=== PATIENT | female | born 2000 | race African-American/Black ===

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

== ENCOUNTER 2022-03-11 08:44 | Emergency (ER) | payer OTHER | END 2022-03-11 09:40 | disposition home or self-care (01) | LOC: ERS 08:44 | DX: H10.9 Unspecified conjunctivitis (principal); D50.9 Iron deficiency anemia, unspecified; F17.290 Nicotine dependence, other tobacco product, uncomplicated | CPT/HCPCS: 99282 ==

== ENCOUNTER 2022-07-17 20:22 | Inpatient (IN) | payer OTHER ==
[2022-07-17 22:54] VITALS: BMI 36.2
[2022-07-17] MEDS ORDERED: Ketorolac Tromethamine 30 MG/ML VIAL IVP SCH (23:45)
[2022-07-18] MEDS ORDERED: Morphine 4 MG/ML VIAL SLOW IVP PRN (00:12)
[2022-07-18] MEDS ORDERED: Ondansetron PF 4 MG/2 ML Vial IVP PRN ×2 (00:20→09:37)
[2022-07-18] MEDS ORDERED: Acetaminophen 325 MG TAB PO PRN (00:20)
[2022-07-18] MEDS ORDERED: Acetaminophen 650 MG Suppository PR PRN (00:20)
[2022-07-18] MEDS ORDERED: Ondansetron ODT 4 MG TAB PO PRN (00:20)
[2022-07-18 03:55] LABS: SARS-CoV-2 NAA Rapid Test Not Detected (NotDetected)
[2022-07-18 05:21] LABS: Iron 16 ug/dL (50-170); Iron Binding Capacity, Total 215 mcg/dL (265-497)
[2022-07-18 05:22] LABS: Anion Gap 11 mmol/L (10-20); BUN (Urea Nitrogen) 8 mg/dL (7.0-18.7); Calc. Creatinine Clearance 177 mL/min (70-130); Calcium 9.1 mg/dL (7.8-10.44); Carbon Dioxide 26 mmol/L (22-29); Chloride 105 mmol/L (98-107); Estimated GFR 110; Glucose 79 mg/dL (70-105); Iron 14 ug/dL (50-170); Iron Binding Capacity, Total 213 mcg/dL (265-497); Potassium 4.3 mmol/L (3.5-5.1); Sodium 138 mmol/L (136-145)
[2022-07-18 06:58] LABS: #Eosinphils 0.2 thou/uL (0.0-0.7); #Lymphocytes 0.6 thou/uL (1.20-3.40); #Monocytes 0.7 thou/uL (0.11-0.59); #Neutrophils 5.8 thou/uL (1.40-6.50); %Basophils 0.3 % (0.0-1.0); %Eosinophils 3.1 % (0.0-10.0); %Lymphocytes 8.6 % (28.0-48.0); %Monocytes 9.6 % (0.0-4.0); %Neutrophils 78.4 % (31.0-61.0); Hemoglobin 7.9 g/dL (12.0-16.0); Hypochromia SLIGHT = 6-15 cells (100X) (0-5/hpf); MDiff Complete? YES; Mean Corpuscular HGB CONC 27.9 g/dL (32.0-36.0); Mean Corpuscular Hemoglobin 18.8 pg (25.0-35.0); Mean Corpuscular Volume 67.3 fL (78.0-98.0); Mean Platelet Volume 8.9 fL (7.4-10.4); Platelet Count 486 thou/uL (130-400); RBC Distribution Width 16.2 % (11.5-14.5); Red Blood Cell (RBC) Count 4.19 mill/uL (4.00-5.20); White Blood Cell (WBC) Count 7.4 thou/uL (4.8-10.8)
[2022-07-18] MEDS ORDERED: fentaNYL Citrate/PF 100 MCG/2 ML SYRINGE ONE (09:32)
[2022-07-18] MEDS ORDERED: Bupivacaine/Epinephrine 0.25% 30 ML VIAL ONE (09:33)
[2022-07-18] MEDS ORDERED: Prochlorperazine Edisylate 10 MG in Sodium Chloride 0.9% 50 ML IVPB PRN (09:37)
[2022-07-18] MEDS ORDERED: Sodium Chloride 0.9% 100 ML ONE (10:16)
[2022-07-18] MEDS ORDERED: CEFAZOLIN 2 GM VIAL ONE (10:16)
[2022-07-18] MEDS ORDERED: CEFAZOLIN 2 GM in Sodium Chloride 0.9% 100 ML IVPB SCH (10:30)
[2022-07-18] MEDS ORDERED: Dexamethasone 20 MG/5 ML VIAL ONE (10:35)
[2022-07-18] MEDS ORDERED: Ondansetron PF 4 MG/2 ML Vial ONE (10:35)
[2022-07-18] MEDS ORDERED: Rocuronium Bromide 10 MG/ML (10ML VIAL) ONE (10:35)
[2022-07-18] MEDS ORDERED: Lidocaine 1% MPF 2 ML VIAL ONE (10:35)
[2022-07-18] MEDS ORDERED: Glycopyrrolate 0.2 MG/ML 5 ML SYRINGE ONE (10:35)
[2022-07-18] MEDS ORDERED: NEOSTIGMINE 3 MG/3 ML SYR 3 MG/3 ML SYRINGE ONE (10:35)
[2022-07-18] MEDS ORDERED: PROPOFOL 200 MG/20 ML VIAL ONE (10:35)
[2022-07-18] MEDS ORDERED: Fentanyl 100 MCG/2 ML VIAL ONE (11:47)
[2022-07-18] MEDS ORDERED: Promethazine HCl 25 MG/ML VIAL IVPB PRN (11:50)
[2022-07-18] MEDS ORDERED: Ondansetron HCl/PF 4 MG/2 ML Vial IVP PRN (11:50)
[2022-07-18] MEDS ORDERED: Promethazine HCl 25 MG/ML VIAL IM PRN (11:50)
[2022-07-18] MEDS: Lactated Ringer's 1,000 ML IV SCH (12:52)
[2022-07-18] MEDS: Iron, Sodium Ferric Gluconate 250 MG in Sodium Chloride 0.9% 250 ML 250 ML IVPB SCH (14:35)
[2022-07-18] MEDS: Heparin 5,000 UNITS/ML VIAL SC SCH (20:44)
[2022-07-19] MEDS: Lactated Ringer's 1,000 ML IV SCH ×2 (00:05→14:33)
[2022-07-19] MEDS ORDERED: traMADol HCl 50 MG TAB PO PRN ×2 (02:52)
[2022-07-19] MEDS ORDERED: Ferrous Gluconate 324 MG TAB PO SCH (08:00)
[2022-07-19 08:15] VITALS: BP 123/59; TEMP 97.2
[2022-07-19] MEDS ORDERED: Iron Sucrose Complex 200 MG in Sodium Chloride 0.9% 100 ML IVPB SCH (09:00)
[2022-07-19 09:17] LABS: Anion Gap 12 mmol/L (10-20); BUN (Urea Nitrogen) 7 mg/dL (7.0-18.7); Calc. Creatinine Clearance 197 mL/min (70-130); Calcium 9.4 mg/dL (7.8-10.44); Carbon Dioxide 25 mmol/L (22-29); Chloride 107 mmol/L (98-107); Estimated GFR 125; Glucose 109 mg/dL (70-105); Sodium 140 mmol/L (136-145)
[2022-07-19] MEDS: Heparin 5,000 UNITS/ML VIAL SC SCH (09:34)
[2022-07-19 09:56] LABS: Band 3 % (5-11); Hemoglobin 8.5 g/dL (12.0-16.0); Hypochromia SLIGHT = 6-15 cells (100X) (0-5/hpf); Lymphocytes 3 % (28-48); MDiff Complete? YES; Mean Corpuscular HGB CONC 28.6 g/dL (32.0-36.0); Mean Corpuscular Hemoglobin 18.9 pg (25.0-35.0); Mean Corpuscular Volume 66.2 fL (78.0-98.0); Mean Platelet Volume 8.3 fL (7.4-10.4); Microcytosis SLIGHT = 6-15 cells (100X) (0-5/hpf); Monocytes 2 % (0-4); Neutrophil 92 % (31-61); Platelet Count 558 thou/uL (130-400); Platelet Morphology Comment Appears Increased; RBC Distribution Width 16.1 % (11.5-14.5); Red Blood Cell (RBC) Count 4.48 mill/uL (4.00-5.20); White Blood Cell (WBC) Count 12.5 thou/uL (4.8-10.8)
[2022-07-19] MEDS: Iron, Sodium Ferric Gluconate 250 MG in Sodium Chloride 0.9% 250 ML 250 ML IVPB SCH (14:33)
== END 2022-07-19 16:30 | disposition home or self-care (01) | DRG 821 ==
LOC: 2NO 22:35
PROVIDERS: ADMIT Hospitalist; ATTEND Hospitalist
PROC: 0WBC0ZX Excision of Mediastinum, Open Approach, Diagnostic (ICD-10-PCS; principal; 2022-07-18)
DX: C81.92 Hodgkin lymphoma, unspecified, intrathoracic lymph nodes (principal); J90 Pleural effusion, not elsewhere classified; Z20.822 Contact with and (suspected) exposure to COVID-19; J45.909 Unspecified asthma, uncomplicated; D50.9 Iron deficiency anemia, unspecified; Z90.721 Acquired absence of ovaries, unilateral; Z79.899 Other long term (current) drug therapy
CPT/HCPCS: 36415; 80048; 82728; 83540; 83550; 83615; 84550; 85025; 86850; 86900; 86901; 88184; 88185; 88305; 88307; 88331; 88341; 88342; 88365; 93306; J0690; J1100; J1644; J1885; J2405; J2704; J2916; J3010; J3490; J7050; J7120; U0002

== ENCOUNTER 2022-07-26 09:30 | Outpatient (CLI) | payer OTHER | END 2022-07-26 09:31 | disposition home or self-care (01) | LOC: PET 09:30 | PROVIDERS: ATTEND Internal Medicine Hematology & Oncology | DX: C81.40 Lymphocyte-rich Hodgkin lymphoma, unspecified site (principal); C85.98 Non-Hodgkin lymphoma, unspecified, lymph nodes of multiple sites | CPT/HCPCS: 78815; A9552 ==

== ENCOUNTER → 2022-09-24 | Outpatient (CLI) | payer OTHER | LOC: PET 09:30 | PROVIDERS: ATTEND Internal Medicine Hematology & Oncology | DX: C81.40 Lymphocyte-rich Hodgkin lymphoma, unspecified site (principal) | CPT/HCPCS: 78815; A9552 ==

== ENCOUNTER 2022-11-04 11:41 | Outpatient (CLI) | payer OTHER | END 2022-11-04 11:42 | disposition home or self-care (01) | LOC: ULT 11:41 | PROVIDERS: ATTEND Internal Medicine | DX: C81.40 Lymphocyte-rich Hodgkin lymphoma, unspecified site (principal); D50.8 Other iron deficiency anemias; R60.0 Localized edema | CPT/HCPCS: 85379 ==

== ENCOUNTER 2022-11-08 22:17 | Inpatient (IN) | payer OTHER ==
[2022-11-08] MEDS ORDERED: Ondansetron ODT 4 MG TAB PO PRN (23:43)
[2022-11-08] MEDS ORDERED: Senokot S 8.6-50 MG TAB PO PRN (23:43)
[2022-11-09 00:07] VITALS: BMI 42.5
[2022-11-09 00:07] LABS: Hemoglobin 11.8 g/dL (12.0-16.0); Platelet Count 313 10x3/uL (130-400)
[2022-11-09] MEDS: Heparin 10,000 UNITS/ 10 ML VIAL SLOW IVP SCH ×2 (01:07→20:12)
[2022-11-09] MEDS: Heparin 25,000 units/D5W 500 ML IVPB SCH ×2 (01:08→18:37)
[2022-11-09] MEDS: Acetaminophen 325 MG TAB PO PRN ×2 (03:53→11:57)
[2022-11-09 04:37] LABS: #Eosinphils 0.2 thou/uL (0.0-0.7); #Lymphocytes 1.2 thou/uL (1.20-3.40); #Monocytes 0.5 thou/uL (0.11-0.59); #Neutrophils 4.9 thou/uL (1.40-6.50); %Basophils 0.2 % (0.0-1.0); %Eosinophils 2.8 % (0.0-10.0); %Lymphocytes 17.1 % (28.0-48.0); %Monocytes 7.2 % (0.0-4.0); %Neutrophils 72.8 % (31.0-61.0); Hemoglobin 11.9 g/dL (12.0-16.0); Mean Corpuscular HGB CONC 32.6 g/dL (32.0-36.0); Mean Corpuscular Hemoglobin 26.9 pg (25.0-35.0); Mean Corpuscular Volume 82.5 fl (78.0-98.0); Mean Platelet Volume 8.4 fL (7.4-10.4); Platelet Count 334 10x3/uL (130-400); RBC Distribution Width 17.6 % (11.5-14.5); Red Blood Cell (RBC) Count 4.41 mill/uL (4.00-5.20); White Blood Cell (WBC) Count 6.7 10x3/uL (4.8-10.8)
[2022-11-09 04:48] LABS: Anion Gap 13 mmol/L (10-20); BUN (Urea Nitrogen) 12 mg/dL (7.0-18.7); Calc. Creatinine Clearance 232 mL/min (70-130); Calcium 8.9 mg/dL (7.8-10.44); Carbon Dioxide 25 mmol/L (22-29); Chloride 104 mmol/L (98-107); Estimated GFR 125; Glucose 119 mg/dL (70-105); Potassium 3.9 mmol/L (3.5-5.1); Sodium 138 mmol/L (136-145)
[2022-11-09] MEDS ORDERED: HYDROcodone/Acetaminophen 5/325 mg Tablet PO SCH (05:00)
[2022-11-09 06:41] LABS: PTT Greater than 250.0 sec (22.9-36.1)
[2022-11-09] MEDS: Famotidine 20 MG TAB PO SCH ×2 (09:02→20:12)
[2022-11-09 09:31] LABS: Troponin I 0.012 ng/mL (< 0.028)
[2022-11-09] MEDS ORDERED: Ipratropium/Albuterol 3 ML NEB NEB PRN (14:01)
[2022-11-10] MEDS: Acetaminophen 325 MG TAB PO PRN (01:14)
[2022-11-10 05:18] LABS: Troponin I Less than 0.010 ng/mL (< 0.028)
[2022-11-10] MEDS: Heparin 25,000 units/D5W 500 ML IVPB SCH (06:58)
[2022-11-10] MEDS: Famotidine 20 MG TAB PO SCH (10:27)
[2022-11-10 13:37] VITALS: BP 109/52; TEMP 97.2
== END 2022-11-10 12:36 | disposition home or self-care (01) | DRG 176 ==
LOC: INTOOBSV 22:49 → 2NO 22:49 → OBSVTOIN 11-10 09:43
PROVIDERS: ADMIT Hospitalist; ATTEND Hospitalist
DX: I26.99 Other pulmonary embolism without acute cor pulmonale (principal); C85.90 Non-Hodgkin lymphoma, unspecified, unspecified site; Z20.822 Contact with and (suspected) exposure to COVID-19; Z79.899 Other long term (current) drug therapy; Z79.01 Long term (current) use of anticoagulants
CPT/HCPCS: 36415; 80048; 84484; 85025; 85730; 93005; 93010; 94640; J1644; J7620; U0003; U0005

== ENCOUNTER 2023-01-08 12:16 | Outpatient (CLI) | payer OTHER | END 2023-01-08 12:17 | disposition home or self-care (01) | LOC: ULT 12:16 | PROVIDERS: ATTEND Internal Medicine | DX: Z51.11 Encounter for antineoplastic chemotherapy (principal); C81.40 Lymphocyte-rich Hodgkin lymphoma, unspecified site; D50.8 Other iron deficiency anemias; I08.1 Rheumatic disorders of both mitral and tricuspid valves | CPT/HCPCS: 93306 ==

== ENCOUNTER → 2023-01-16 | Outpatient (CLI) | payer OTHER | LOC: PET 11:00 | PROVIDERS: ATTEND Internal Medicine | DX: C81.10 Nodular sclerosis Hodgkin lymphoma, unspecified site (principal) | CPT/HCPCS: 78815; A9552 ==

== ENCOUNTER 2023-02-10 09:21 | Day surgery (SDC) | payer OTHER ==
[2023-02-10 09:40] LABS: INR-International Normal Ratio 1.1; Prothrombin Time 14.6 sec (12.0-14.7)
[2023-02-10 10:46] VITALS: BP 156/82; TEMP 98.6; BMI 43.2
== END 2023-02-10 14:00 | disposition home or self-care (01) ==
LOC: CT 09:21
PROVIDERS: ATTEND Internal Medicine
PROC: 0WBC3ZX Excision of Mediastinum, Percutaneous Approach, Diagnostic (ICD-10-PCS; principal; 2023-02-10)
DX: C81.40 Lymphocyte-rich Hodgkin lymphoma, unspecified site (principal); R22.2 Localized swelling, mass and lump, trunk; D72.819 Decreased white blood cell count, unspecified; D50.8 Other iron deficiency anemias; Z21 Asymptomatic human immunodeficiency virus [HIV] infection status; Z79.01 Long term (current) use of anticoagulants
CPT/HCPCS: 20225; 36415; 77002; 85610; 85730; 88184; 88307; 88333; 88341; 88342

== ENCOUNTER 2023-02-28 11:45 | Outpatient (CLI) | payer OTHER ==
[~2023-02-28 11:45] MED LIST: Iopamidol 370 76% 100 ML VIAL ONE
== END 2023-02-28 11:46 | disposition home or self-care (01) ==
LOC: CT 11:45
PROVIDERS: ATTEND Internal Medicine
DX: C81.40 Lymphocyte-rich Hodgkin lymphoma, unspecified site (principal); D50.8 Other iron deficiency anemias; J98.59 Other diseases of mediastinum, not elsewhere classified; R59.0 Localized enlarged lymph nodes; I31.39 Other pericardial effusion (noninflammatory)
CPT/HCPCS: 71275; Q9967

== ENCOUNTER 2023-04-01 20:25 | Emergency (ER) | payer OTHER ==
[2023-04-01 22:12] LABS: #Basophils 0.1 thou/uL (0.0-0.2); #Eosinphils 0.2 thou/uL (0.0-0.7); #Monocytes 0.6 thou/uL (0.11-0.59); #Neutrophils 7.7 thou/uL (1.40-6.50); %Basophils 0.5 % (0.0-1.0); %Eosinophils 1.8 % (0.0-10.0); %Lymphocytes 13.4 % (21.0-51.0); %Monocytes 5.6 % (0.0-10.0); %Neutrophils 78.5 % (42.0-75.0); Hemoglobin 12.8 g/dL (12.0-16.0); Mean Corpuscular HGB CONC 31.3 g/dL (32.0-36.0); Mean Corpuscular Hemoglobin 24.9 pg (27.0-31.0); Mean Corpuscular Volume 79.6 fl (78.0-98.0); Mean Platelet Volume 9.5 fL (7.4-10.4); Platelet Count 382 10x3/uL (130-400); RBC Distribution Width 14.2 % (11.5-14.5); Red Blood Cell (RBC) Count 5.14 mill/uL (4.20-5.40); White Blood Cell (WBC) Count 9.8 10x3/uL (4.8-10.8)
[2023-04-01 22:40] LABS: ALT (SGPT) 14 U/L (8-55); AST (SGOT) 16 U/L (5-34); Albumin 4.2 g/dL (3.5-5.0); Alkaline Phosphatase 111 U/L (40-110); Anion Gap 14 mmol/L (10-20); BUN (Urea Nitrogen) 11 mg/dL (7.0-18.7); Bilirubin, Total 0.3 mg/dL (0.2-1.2); Calc. Creatinine Clearance 0 mL/min (70-130); Calcium 9.7 mg/dL (7.8-10.44); Carbon Dioxide 26 mmol/L (22-29); Chloride 104 mmol/L (98-107); Estimated GFR 103; Globulin 3.1 g/dL (2.4-3.5); Glucose 103 mg/dL (70-105); Potassium 4.1 mmol/L (3.5-5.1); Protein, Total 7.3 g/dL (6.0-8.3); Sodium 140 mmol/L (136-145)
== END 2023-04-01 23:53 | disposition home or self-care (01) ==
LOC: ERS 20:25
DX: R07.89 Other chest pain (principal); R06.02 Shortness of breath; J90 Pleural effusion, not elsewhere classified
CPT/HCPCS: 36415; 71045; 83880; 93005

== ENCOUNTER 2023-05-19 14:43 | Outpatient (CLI) | payer OTHER | END 2023-05-19 14:44 | disposition home or self-care (01) | LOC: RAD 14:43 | PROVIDERS: ATTEND Thoracic Surgery (Cardiothoracic Vascular Surgery) | DX: J98.59 Other diseases of mediastinum, not elsewhere classified (principal); J90 Pleural effusion, not elsewhere classified | CPT/HCPCS: 71046 ==

== ENCOUNTER 2023-06-03 13:38 | Outpatient (CLI) | payer OTHER | END 2023-06-03 13:39 | disposition home or self-care (01) | LOC: PET 13:38 | PROVIDERS: ATTEND Internal Medicine | DX: Z51.11 Encounter for antineoplastic chemotherapy (principal); C81.40 Lymphocyte-rich Hodgkin lymphoma, unspecified site; M54.2 Cervicalgia; D50.8 Other iron deficiency anemias; R00.0 Tachycardia, unspecified; I31.39 Other pericardial effusion (noninflammatory); J90 Pleural effusion, not elsewhere classified; Z79.899 Other long term (current) drug therapy | CPT/HCPCS: 72141; 72156; 78815; 93306; A9552 ==

== ENCOUNTER 2023-06-26 19:49 | Inpatient (IN) | payer OTHER ==
[2023-06-26 21:11] LABS: #Monocytes 0.2 thou/uL (0.11-0.59); #Neutrophils 16.1 thou/uL (1.40-6.50); %Basophils 0.1 % (0.0-1.0); %Eosinophils 0.1 % (0.0-10.0); %Lymphocytes 3.6 % (21.0-51.0); %Monocytes 0.9 % (0.0-10.0); %Neutrophils 94.5 % (42.0-75.0); Hematocrit 37.5 % (36.0-47.0); Hemoglobin 11.5 g/dL (12.0-16.0); Mean Corpuscular HGB CONC 30.7 g/dL (32.0-36.0); Mean Corpuscular Hemoglobin 22.2 pg (27.0-31.0); Mean Corpuscular Volume 72.5 fl (78.0-98.0); Mean Platelet Volume 10.4 fL (7.4-10.4); Platelet Count 240 10x3/uL (130-400); RBC Distribution Width 14.4 % (11.5-14.5); Red Blood Cell (RBC) Count 5.17 mill/uL (4.20-5.40); White Blood Cell (WBC) Count 17.1 10x3/uL (4.8-10.8)
[2023-06-26] MEDS ORDERED: Metoclopramide HCl 10 MG/2 ML VIAL ONE (21:26)
[2023-06-26] MEDS ORDERED: Ondansetron PF 4 MG/2 ML Vial ONE (21:26)
[2023-06-26] MEDS ORDERED: Ketorolac Tromethamine 30 MG/ML VIAL ONE (21:26)
[2023-06-26] MEDS ORDERED: diphenhydrAMINE 50 MG/ML VIAL ONE (21:26)
[2023-06-26 21:28] LABS: BHCG - Serum Negative (NEGATIVE); Pregs Control Background? CLEAR/WHITE (CLR/WHITE); Pregs Control Bar Appear? YES (CONTROL BAR)
[2023-06-26 21:34] LABS: ALT (SGPT) 68 U/L (8-55); AST (SGOT) 54 U/L (5-34); Albumin 4.1 g/dL (3.5-5.0); Alkaline Phosphatase 98 U/L (40-110); Anion Gap 14 mmol/L (10-20); BUN (Urea Nitrogen) 11 mg/dL (7.0-18.7); Bilirubin, Total 0.5 mg/dL (0.2-1.2); Calc. Creatinine Clearance 0 mL/min (70-130); Calcium 9.7 mg/dL (7.8-10.44); Carbon Dioxide 26 mmol/L (22-29); Chloride 103 mmol/L (98-107); Estimated GFR 100; Globulin 4.2 g/dL (2.4-3.5); Glucose 103 mg/dL (70-105); Lipase Less than 4 U/L (8-78); Potassium 3.8 mmol/L (3.5-5.1); Protein, Total 8.3 g/dL (6.0-8.3); Sodium 139 mmol/L (136-145)
[2023-06-26 21:38] LABS: Burr Cells SLIGHT = 2-5 cells HPF (0-1); CellaVision Operator ID lab.abc; Hypochromia SLIGHT = 6-15 cells HPF (0-5); Microcytosis SLIGHT = 6-15 cells HPF (0-5); Platelet Adequacy Comment Platelets Normal; Polychromasia SLIGHT = 2-3 cells HPF (0-2)
[2023-06-26 22:01] LABS: Troponin I Less than 0.010 ng/mL (< 0.028)
[2023-06-26] MEDS ORDERED: Acetaminophen 325 MG TAB PO PRN (23:19)
[2023-06-26] MEDS ORDERED: Ondansetron ODT 4 MG TAB PO PRN (23:19)
[2023-06-26 23:40] LABS: Bacteria/HPF None Seen HPF (None Seen); Bilirubin Negative (Negative); Blood, Urine 3+ (Negative); CAUTI Indications for Culture < 2yrs of age; Clarity Clear (Clear); Glucose, Urine (Dipstick) Normal (Negative); Ketone, Urine Negative (Negative); Leukocyte Negative Leu/uL (Negative); Nitrite Negative (Negative); Protein, Urine (Dipstick) 30 mg/dL (Neg-Trace); RBC/HPF Greater than 50 HPF (0-3); Specific Gravity, Urine 1.033 (1.002-1.036); Squamous Epithelial 0-3 HPF (0-3)
[2023-06-27 00:01] LABS: Urine Culture Reflex Yes Yes
[2023-06-27] MEDS ORDERED: Ondansetron PF 4 MG/2 ML Vial ONE (00:10)
[2023-06-27 01:06] VITALS: BMI 42.0
[2023-06-27] MEDS ORDERED: Promethazine HCl 12.5 MG in Sodium Chloride 0.9% 50 ML IVPB SCH ×2 (01:30→06:30)
[2023-06-27] MEDS: Ondansetron PF 4 MG/2 ML Vial IVP PRN ×3 (06:14→22:33)
[2023-06-27] MEDS: HYDROcodone/Acetaminophen 5/325 mg Tablet PO PRN ×2 (06:14→22:32)
[2023-06-27 06:31] LABS: #Neutrophils 16.8 thou/uL (1.40-6.50); %Basophils 0.1 % (0.0-1.0); %Eosinophils 0.2 % (0.0-10.0); %Lymphocytes 3.9 % (21.0-51.0); %Monocytes 0.2 % (0.0-10.0); %Neutrophils 93.6 % (42.0-75.0); Hematocrit 31.6 % (36.0-47.0); Hemoglobin 9.7 g/dL (12.0-16.0); Mean Corpuscular HGB CONC 30.7 g/dL (32.0-36.0); Mean Corpuscular Hemoglobin 22.8 pg (27.0-31.0); Mean Corpuscular Volume 74.2 fl (78.0-98.0); Platelet Count 188 10x3/uL (130-400); RBC Distribution Width 14.6 % (11.5-14.5); Red Blood Cell (RBC) Count 4.26 mill/uL (4.20-5.40); White Blood Cell (WBC) Count 17.9 10x3/uL (4.8-10.8)
[2023-06-27 07:46] LABS: Anion Gap 11 mmol/L (10-20); BUN (Urea Nitrogen) 14 mg/dL (7.0-18.7); Calc. Creatinine Clearance 187 mL/min (70-130); Calcium 8.9 mg/dL (7.8-10.44); Carbon Dioxide 27 mmol/L (22-29); Chloride 104 mmol/L (98-107); Estimated GFR 99; Glucose 71 mg/dL (70-105); Potassium 3.5 mmol/L (3.5-5.1); Sodium 138 mmol/L (136-145)
[2023-06-27] MEDS: Famotidine 20 MG TAB PO SCH ×2 (08:22→22:31)
[2023-06-27] MEDS ORDERED: Morphine 2 MG/ML VIAL SLOW IVP SCH (13:15)
[2023-06-27 13:33] LABS: Pleural Fluid, Amylase Less than 30 U/L (Not Available); Pleural Fluid, Glucose 87 mg/dL; Pleural Fluid, LDH 143 U/L (Not Available); Pleural Fluid, Protein 4.1 g/dL
[2023-06-27 13:34] LABS: RBC Count-Automated (BF) 153 /cu.mm; WBC/Nucleated-Auto (BF) 88 /cu.mm
[2023-06-27 13:56] LABS: BF Color Yellow; Body Fluid Source Thoracentesis Fluid; Clarity Clear (Clear); Tube # EDTA
[2023-06-27 13:57] LABS: BF Segmented Neutrophils 32 %; Cell Count Non Hematic 30 %; Lymphocytes 38 %
[2023-06-28] MEDS: HYDROcodone/Acetaminophen 5/325 mg Tablet PO PRN ×2 (03:24→20:20)
[2023-06-28 06:07] LABS: Hemoglobin 9.8 g/dL (12.0-16.0); Mean Corpuscular HGB CONC 29.7 g/dL (32.0-36.0); Mean Corpuscular Hemoglobin 22.1 pg (27.0-31.0); Mean Corpuscular Volume 74.3 fl (78.0-98.0); Mean Platelet Volume 9.8 fL (7.4-10.4); Platelet Count 150 10x3/uL (130-400); RBC Distribution Width 14.6 % (11.5-14.5); Red Blood Cell (RBC) Count 4.44 mill/uL (4.20-5.40); White Blood Cell (WBC) Count 12.3 10x3/uL (4.8-10.8)
[2023-06-28 06:39] LABS: Anion Gap 11 mmol/L (10-20); BUN (Urea Nitrogen) 12 mg/dL (7.0-18.7); Calc. Creatinine Clearance 209 mL/min (70-130); Calcium 8.5 mg/dL (7.8-10.44); Carbon Dioxide 28 mmol/L (22-29); Chloride 101 mmol/L (98-107); Estimated GFR 112; Glucose 129 mg/dL (70-105); Potassium 3.6 mmol/L (3.5-5.1); Sodium 136 mmol/L (136-145)
[2023-06-28] MEDS: Famotidine 20 MG TAB PO SCH ×2 (08:23→20:20)
[2023-06-28] MEDS: Ondansetron PF 4 MG/2 ML Vial IVP PRN (08:23)
[2023-06-28] MEDS ORDERED: Morphine 2 MG/ML VIAL SLOW IVP PRN (23:34)
[2023-06-29] MEDS: Ondansetron PF 4 MG/2 ML Vial IVP PRN ×3 (01:59→18:00)
[2023-06-29] MEDS: HYDROcodone/Acetaminophen 5/325 mg Tablet PO PRN (02:09)
[2023-06-29] MEDS: Famotidine 20 MG TAB PO SCH ×2 (08:14→20:35)
[2023-06-29] MEDS ORDERED: Promethazine HCl 12.5 MG in Sodium Chloride 0.9% 50 ML IVPB SCH (10:45)
[2023-06-29] MEDS ORDERED: Lactated Ringer's 1,000 ML IV SCH (18:45)
[2023-06-30] MEDS: Promethazine HCl 12.5 MG in Sodium Chloride 0.9% 50 ML IVPB PRN ×3 (01:51→18:39)
[2023-06-30] MEDS: Ondansetron PF 4 MG/2 ML Vial IVP PRN ×2 (06:57→16:35)
[2023-06-30 07:30] LABS: Hematocrit 35.3 % (36.0-47.0); Hemoglobin 10.8 g/dL (12.0-16.0); Mean Corpuscular HGB CONC 30.6 g/dL (32.0-36.0); Mean Corpuscular Hemoglobin 22.2 pg (27.0-31.0); Mean Corpuscular Volume 72.5 fl (78.0-98.0); Mean Platelet Volume 9.9 fL (7.4-10.4); Platelet Count 176 10x3/uL (130-400); RBC Distribution Width 14.7 % (11.5-14.5); Red Blood Cell (RBC) Count 4.87 mill/uL (4.20-5.40); White Blood Cell (WBC) Count 4.3 10x3/uL (4.8-10.8)
[2023-06-30] MEDS: Famotidine 20 MG TAB PO SCH ×2 (09:19→20:33)
[2023-06-30] MEDS: HYDROcodone/Acetaminophen 5/325 mg Tablet PO PRN ×2 (09:19→20:38)
[2023-06-30] MEDS ORDERED: Iopamidol-370 76% 500 ML MDV (1 ML CHARGE) ONE (09:48)
[2023-07-01] MEDS: Promethazine HCl 12.5 MG in Sodium Chloride 0.9% 50 ML IVPB PRN ×2 (02:23→15:01)
[2023-07-01 07:59] LABS: Hematocrit 35.4 % (36.0-47.0); Hemoglobin 10.9 g/dL (12.0-16.0); Mean Corpuscular HGB CONC 30.8 g/dL (32.0-36.0); Mean Corpuscular Hemoglobin 22.5 pg (27.0-31.0); Mean Platelet Volume 10.3 fL (7.4-10.4); Platelet Count 152 10x3/uL (130-400); RBC Distribution Width 14.7 % (11.5-14.5); Red Blood Cell (RBC) Count 4.85 mill/uL (4.20-5.40)
[2023-07-01 08:02] LABS: Delete Auto Diff?? YES; Manual Diff?? YES
[2023-07-01 08:33] LABS: Band 38 % (5-11); Burr Cells SLIGHT = 2-5 cells HPF (0-1); CellaVision Operator ID LAB.GE; Dohle Bodies MODERATE; Eosinophils 2 % (0-10); Hypochromia SLIGHT = 6-15 cells HPF (0-5); Large Platelets 1.9 % (0-5); Lymphocytes 17 % (21-51); Metamyelocyte 2 % (0-0); Microcytosis SLIGHT = 6-15 cells HPF (0-5); Monocytes 5 % (0-10); Neutrophil 36 % (42-75); Ovalocytes SLIGHT = 2-5 cells HPF (0-1); Platelet Adequacy Comment Platelets Normal; Polychromasia SLIGHT = 2-3 cells HPF (0-2); Total Cell Count 103
[2023-07-01 08:35] LABS: ALT (SGPT) 259 U/L (8-55); AST (SGOT) 179 U/L (5-34); Albumin 3.8 g/dL (3.5-5.0); Alkaline Phosphatase 118 U/L (40-110); Anion Gap 13 mmol/L (10-20); BUN (Urea Nitrogen) 8 mg/dL (7.0-18.7); Bilirubin, Total 0.4 mg/dL (0.2-1.2); Calc. Creatinine Clearance 194 mL/min (70-130); Calcium 9.1 mg/dL (7.8-10.44); Carbon Dioxide 27 mmol/L (22-29); Chloride 99 mmol/L (98-107); Estimated GFR 103; Globulin 3.2 g/dL (2.4-3.5); Glucose 94 mg/dL (70-105); Iron 69 ug/dL (50-170); Iron Binding Capacity, Total 233 mcg/dL (265-497); Potassium 4.2 mmol/L (3.5-5.1); Sodium 135 mmol/L (136-145)
[2023-07-01] MEDS: Famotidine 20 MG TAB PO SCH ×2 (08:40→21:27)
[2023-07-01 16:15] LABS: ALT (SGPT) 276 U/L (8-55); AST (SGOT) 184 U/L (5-34); Albumin 3.9 g/dL (3.5-5.0); Alkaline Phosphatase 120 U/L (40-110); Bilirubin, Direct 0.3 mg/dL (0.1-0.3); Bilirubin, Total 0.5 mg/dL (0.2-1.2); Protein, Total 7.3 g/dL (6.0-8.3)
[2023-07-01] MEDS ORDERED: Promethazine HCl 25 MG in Sodium Chloride 0.9% 50 ML IVPB PRN (16:17)
[2023-07-01] MEDS ORDERED: predniSONE 50 MG TAB PO SCH (16:30)
[2023-07-01] MEDS: HYDROcodone/Acetaminophen 5/325 mg Tablet PO PRN (17:45)
[2023-07-02] MEDS ORDERED: LevoFLOXacin 750 MG TAB PO SCH (06:00)
[2023-07-02] MEDS ORDERED: predniSONE 50 MG TAB PO SCH (08:00)
[2023-07-02 09:36] VITALS: BP 116/80; TEMP 98.3
[2023-07-02] MEDS: Famotidine 20 MG TAB PO SCH (10:37)
== END 2023-07-02 12:10 | disposition home or self-care (01) | DRG 187 ==
LOC: ERS 19:49 → SJJU 06-27 00:27 → OBSVTOIN 06-29 13:59
PROVIDERS: ADMIT Student in an Organized Health Care Education/Training Program; ATTEND Internal Medicine
PROC: 0W9B3ZZ Drainage of Left Pleural Cavity, Percutaneous Approach (ICD-10-PCS; principal; 2023-06-27)
DX: J90 Pleural effusion, not elsewhere classified (principal); C81.90 Hodgkin lymphoma, unspecified, unspecified site; K52.9 Noninfective gastroenteritis and colitis, unspecified; D72.829 Elevated white blood cell count, unspecified; Z20.822 Contact with and (suspected) exposure to COVID-19; Z91.041 Radiographic dye allergy status; Z79.899 Other long term (current) drug therapy
CPT/HCPCS: 36415; 71045; 74177; 80048; 80053; 81001; 82150; 82728; 82945; 83540; 83550; 83605; 83615; 83690; 83880; 83986; 84157; 84478; 84484; 84703; 85025; 85027; 85060; 87070; 87086; 87116; 87205; 87206; 87635; 88112; 88305; 88341; 88342; 89051; 93005; 93010; 96365; 96366; 96367; 96375; 96376; G0378; J0780; J1200; J1642; J1885; J2272; J2405; J2550; J2765; J7120; J7512; Q0162; Q9967

== ENCOUNTER 2023-07-25 09:13 | Observation (INO) | payer OTHER ==
[~2023-07-25 09:13] MED LIST changes: +DEXTROSE 5% IVPB SCH; +DOXORUBICIN PEG LIPOSOMAL IVPB SCH; +GEMCITABINE IVPB SCH; -Iopamidol 370 76% 100 ML VIAL ONE; +SODIUM CHLORIDE 0.9% IVPB SCH; +VINORELBINE IVPB SCH; +WATER IVPB SCH
[2023-07-25] MEDS ORDERED: PALONOSETRON HCL 0.05 MG/ML 5 ML VIAL IVP SCH (11:30)
[2023-07-25] MEDS ORDERED: diphenhydrAMINE 50 MG in Sodium Chloride 0.9% 50 ML IVPB SCH (11:30)
[2023-07-25] MEDS ORDERED: Promethazine HCl 12.5 MG in Sodium Chloride 0.9% 50 ML IVPB PRN ×2 (11:44→12:51)
[2023-07-25] MEDS ORDERED: Promethazine HCl 12.5 MG in Sodium Chloride 0.9% 50 ML IVPB SCH (11:45)
[2023-07-25] MEDS ORDERED: Lorazepam 2 MG/ML VIAL SLOW IVP SCH (11:45)
[2023-07-25] MEDS ORDERED: Lorazepam 2 MG/ML VIAL SLOW IVP PRN (11:46)
[2023-07-25] MEDS ORDERED: Famotidine/PF 20 mg/2ml Vial SLOW IVP PRN (11:48)
[2023-07-25 11:55] VITALS: BMI 43.7
[2023-07-25] MEDS ORDERED: SODIUM CHLORIDE 0.9% IVPB SCH (12:30)
[2023-07-25] MEDS ORDERED: GEMCITABINE IVPB SCH (12:30)
[2023-07-25] MEDS ORDERED: Ondansetron PF 4 MG/2 ML Vial IVP PRN (12:47)
[2023-07-25] MEDS ORDERED: Morphine 4 MG/ML VIAL SLOW IVP PRN (12:49)
[2023-07-25] MEDS ORDERED: Morphine 2 MG/ML VIAL SLOW IVP PRN (12:49)
[2023-07-25 12:51] LABS: #Eosinphils 0.3 thou/uL (0.0-0.7); #Monocytes 0.2 thou/uL (0.11-0.59); #Neutrophils 3.8 thou/uL (1.40-6.50); %Basophils 0.8 % (0.0-1.0); %Eosinophils 5.5 % (0.0-10.0); %Lymphocytes 17.6 % (21.0-51.0); %Neutrophils 71.9 % (42.0-75.0); Hematocrit 34.3 % (36.0-47.0); Hemoglobin 10.7 g/dL (12.0-16.0); Mean Corpuscular HGB CONC 31.2 g/dL (32.0-36.0); Mean Corpuscular Hemoglobin 24.3 pg (27.0-31.0); Mean Corpuscular Volume 77.8 fl (78.0-98.0); Mean Platelet Volume 10.5 fL (7.4-10.4); Platelet Count 185 10x3/uL (130-400); RBC Distribution Width 21.2 % (11.5-14.5); Red Blood Cell (RBC) Count 4.41 mill/uL (4.20-5.40); White Blood Cell (WBC) Count 5.3 10x3/uL (4.8-10.8)
[2023-07-25 13:21] LABS: ALT (SGPT) 43 U/L (8-55); AST (SGOT) 26 U/L (5-34); Albumin 3.7 g/dL (3.5-5.0); Alkaline Phosphatase 80 U/L (40-110); Anion Gap 11 mmol/L (10-20); BUN (Urea Nitrogen) 9 mg/dL (7.0-18.7); Bilirubin, Total 0.2 mg/dL (0.2-1.2); Calc. Creatinine Clearance 189 mL/min (70-130); Calcium 9.1 mg/dL (7.8-10.44); Carbon Dioxide 29 mmol/L (22-29); Chloride 103 mmol/L (98-107); Estimated GFR 99; Globulin 2.9 g/dL (2.4-3.5); Glucose 190 mg/dL (70-105); Magnesium 1.7 mg/dL (1.6-2.6); Potassium 3.5 mmol/L (3.5-5.1); Protein, Total 6.6 g/dL (6.0-8.3); Sodium 139 mmol/L (136-145); Uric Acid 5.7 mg/dL (2.6-6.0)
[2023-07-25] MEDS ORDERED: FLU VACC QS2023-24(6MOS UP)/PF 60 MCG/0.5 ML SYRINGE IM ONE (17:45)
[2023-07-26 05:23] LABS: #Monocytes 0.3 thou/uL (0.11-0.59); #Neutrophils 8.9 thou/uL (1.40-6.50); %Basophils 0.2 % (0.0-1.0); %Lymphocytes 4.9 % (21.0-51.0); %Monocytes 3.4 % (0.0-10.0); %Neutrophils 90.9 % (42.0-75.0); Hematocrit 35.6 % (36.0-47.0); Mean Corpuscular HGB CONC 30.9 g/dL (32.0-36.0); Mean Corpuscular Volume 77.6 fl (78.0-98.0); Mean Platelet Volume 11.4 fL (7.4-10.4); Platelet Count 228 10x3/uL (130-400); RBC Distribution Width 20.9 % (11.5-14.5); Red Blood Cell (RBC) Count 4.59 mill/uL (4.20-5.40); White Blood Cell (WBC) Count 9.7 10x3/uL (4.8-10.8)
[2023-07-26 05:50] LABS: ALT (SGPT) 44 U/L (8-55); AST (SGOT) 24 U/L (5-34); Albumin 3.7 g/dL (3.5-5.0); Alkaline Phosphatase 89 U/L (40-110); Anion Gap 13 mmol/L (10-20); BUN (Urea Nitrogen) 12 mg/dL (7.0-18.7); Bilirubin, Total 0.3 mg/dL (0.2-1.2); Calc. Creatinine Clearance 191 mL/min (70-130); Calcium 9.6 mg/dL (7.8-10.44); Carbon Dioxide 25 mmol/L (22-29); Chloride 104 mmol/L (98-107); Estimated GFR 100; Glucose 332 mg/dL (70-105); Potassium 4.2 mmol/L (3.5-5.1); Protein, Total 6.7 g/dL (6.0-8.3); Sodium 138 mmol/L (136-145)
[2023-07-26] MEDS ORDERED: FLU VACC QS2023-24(6MOS UP)/PF 60 MCG/0.5 ML SYRINGE IM ONE ×2 (09:00→22:00)
[2023-07-26] MEDS ORDERED: PEGFILGRASTIM-JMDB 6 MG/0.6 ML SYRINGE SQ SCH (11:45)
[2023-07-26 17:47] VITALS: BP 110/65; TEMP 99
== END 2023-07-26 20:10 | disposition home or self-care (01) ==
LOC: SURG A 11:09 → INTOOBSV 11:09
PROVIDERS: ADMIT Family Medicine; ATTEND Internal Medicine
DX: C81.10 Nodular sclerosis Hodgkin lymphoma, unspecified site (principal); F41.9 Anxiety disorder, unspecified; R07.9 Chest pain, unspecified; Z79.633 Long term (current) use of mitotic inhibitor; Z91.041 Radiographic dye allergy status; Z79.899 Other long term (current) drug therapy
CPT/HCPCS: 36415; 80053; 83615; 83735; 84550; 85025; 96367; 96372; 96375; 96413; 96415; 96417; G0378; J1100; J1200; J1642; J2060; J2469; J2550; J7050; J7070; J9000; J9201; J9390; Q5108; S0028

== ENCOUNTER 2023-07-31 08:45 | Outpatient (CLI) | payer OTHER | END 2023-07-31 08:46 | disposition home or self-care (01) | LOC: PET 08:45 | PROVIDERS: ATTEND Internal Medicine Hematology & Oncology | DX: C81.40 Lymphocyte-rich Hodgkin lymphoma, unspecified site (principal) | CPT/HCPCS: 78815; A9552 ==

== ENCOUNTER 2023-11-05 10:15 | Outpatient (CLI) | payer OTHER | END 2023-11-05 10:16 | LOC: PET 10:15 | PROVIDERS: ATTEND Internal Medicine | DX: C81.40 Lymphocyte-rich Hodgkin lymphoma, unspecified site (principal); R59.0 Localized enlarged lymph nodes | CPT/HCPCS: 78815; A9552 ==

== ENCOUNTER 2024-02-25 08:00 | Outpatient (CLI) | payer OTHER | END 2024-02-25 08:01 | disposition home or self-care (01) | LOC: PET 08:00 | PROVIDERS: ATTEND Internal Medicine | DX: C81.40 Lymphocyte-rich Hodgkin lymphoma, unspecified site (principal) | CPT/HCPCS: 78815; A9552 ==

== ENCOUNTER 2024-03-09 08:19 | Day surgery (SDC) | payer OTHER ==
[2024-03-09 09:24] VITALS: BP 109/63; TEMP 98.3
== END 2024-03-09 10:14 | disposition home or self-care (01) ==
LOC: ONC/OP 08:19
PROVIDERS: ATTEND Internal Medicine
DX: C81.40 Lymphocyte-rich Hodgkin lymphoma, unspecified site (principal); D72.819 Decreased white blood cell count, unspecified; D50.8 Other iron deficiency anemias; Z21 Asymptomatic human immunodeficiency virus [HIV] infection status; Z91.041 Radiographic dye allergy status
CPT/HCPCS: 96413; J1642; J9271

== ENCOUNTER 2024-03-31 08:47 | Day surgery (SDC) | payer OTHER ==
[2024-03-31 09:16] VITALS: TEMP 98.4
[2024-03-31 13:47] VITALS: BP 106/55
== END 2024-03-31 13:48 | disposition home or self-care (01) ==
LOC: ONC/OP 08:47
PROVIDERS: ATTEND Internal Medicine
DX: C81.40 Lymphocyte-rich Hodgkin lymphoma, unspecified site (principal); D72.819 Decreased white blood cell count, unspecified; D50.8 Other iron deficiency anemias; Z21 Asymptomatic human immunodeficiency virus [HIV] infection status; Z91.041 Radiographic dye allergy status
CPT/HCPCS: 96413; J1642; J9271

== ENCOUNTER 2024-04-20 10:19 | Day surgery (SDC) | payer OTHER ==
[2024-04-20 11:15] VITALS: BP 91/49; TEMP 98.6
== END 2024-04-20 12:15 | disposition home or self-care (01) ==
LOC: ONC/OP 10:19
PROVIDERS: ATTEND Internal Medicine
DX: C81.40 Lymphocyte-rich Hodgkin lymphoma, unspecified site (principal); D72.819 Decreased white blood cell count, unspecified; D50.8 Other iron deficiency anemias; Z21 Asymptomatic human immunodeficiency virus [HIV] infection status; Z91.041 Radiographic dye allergy status
CPT/HCPCS: 96413; J1642; J9271

== ENCOUNTER 2024-05-12 10:15 | Day surgery (SDC) | payer OTHER ==
[2024-05-12 10:59] VITALS: BP 111/76; TEMP 98.3
== END 2024-05-12 11:53 | disposition home or self-care (01) ==
LOC: ONC/OP 10:15
PROVIDERS: ATTEND Internal Medicine
DX: C81.40 Lymphocyte-rich Hodgkin lymphoma, unspecified site (principal); D72.819 Decreased white blood cell count, unspecified; D50.8 Other iron deficiency anemias; Z21 Asymptomatic human immunodeficiency virus [HIV] infection status; Z91.041 Radiographic dye allergy status
CPT/HCPCS: 96413; J1642; J9271

== ENCOUNTER 2024-08-23 13:10 | Emergency (ER) | payer OTHER | END 2024-08-23 14:20 | disposition home or self-care (01) | LOC: ERS 13:10 | DX: J11.1 Influenza due to unidentified influenza virus with other respiratory manifestations (principal) | CPT/HCPCS: 87428; 99283 ==

== ENCOUNTER 2024-08-30 11:33 | Emergency (ER) | payer OTHER ==
[2024-08-30] MEDS ORDERED: cefTRIAXone (ROCEPHIN) 1 GM VIAL ONE (14:25)
[2024-08-30] MEDS ORDERED: Lidocaine 1% PF 5 ML VIAL ONE (14:25)
[2024-08-30] MEDS ORDERED: Ketorolac Tromethamine 30 MG (1 mL) VIAL ONE (14:25)
[2024-08-30 15:56] LABS: #Basophils Less than 0.03 10x3/uL (0.0-0.2); %Basophils 0.2 % (0.0-1.0); %Eosinophils 1.2 % (0.0-10.0); %Lymphocytes 18.7 % (21.0-51.0); %Monocytes 4.5 % (0.0-10.0); %Neutrophils 75.2 % (42.0-75.0); Hematocrit 39.8 % (36.0-47.0); Mean Corpuscular HGB CONC 32.7 g/dL (32.0-36.0); Mean Corpuscular Volume 79.6 fL (78.0-98.0); Mean Platelet Volume 10.2 fL (7.4-10.4); Platelet Count 252 10x3/uL (130-400); RBC Distribution Width 13.2 % (11.5-14.5)
[2024-08-30 16:11] LABS: ALT (SGPT) 16 U/L (8-55); AST (SGOT) 15 U/L (5-34); Albumin 3.6 g/dL (3.5-5.0); Alkaline Phosphatase 96 U/L (40-110); Anion Gap 13 mmol/L (10-20); BUN (Urea Nitrogen) 7 mg/dL (7.0-18.7); Bilirubin, Total 0.4 mg/dL (0.2-1.2); Calc. Creatinine Clearance 0 mL/min (70-130); Carbon Dioxide 23 mmol/L (22-29); Chloride 105 mmol/L (98-107); Estimated GFR 119; Globulin 3.8 g/dL (2.4-3.5); Glucose 154 mg/dL (70-105); Potassium 3.6 mmol/L (3.5-5.1); Protein, Total 7.4 g/dL (6.0-8.3); Sodium 137 mmol/L (136-145)
== END 2024-08-30 16:24 | disposition home or self-care (01) ==
LOC: ERS 11:33
DX: H60.91 Unspecified otitis externa, right ear (principal); B34.9 Viral infection, unspecified; C85.90 Non-Hodgkin lymphoma, unspecified, unspecified site; D64.9 Anemia, unspecified; J45.909 Unspecified asthma, uncomplicated; I26.99 Other pulmonary embolism without acute cor pulmonale; Z55.6 Problems related to health literacy
CPT/HCPCS: 36415; 80053; 85025; 96372; 99282; J0696; J1885

== ENCOUNTER 2025-05-26 11:58 | Emergency (ER) | payer OTHER ==
[2025-05-26] MEDS ORDERED: Ondansetron PF 4 MG/2 ML Vial ONE (12:19)
[2025-05-26 12:37] LABS: #Basophils 0.05 10x3/uL (0.0-0.2); #Eosinophils 0.12 10x3/uL (0.0-0.7); #Monocytes 0.30 10x3/uL (0.11-0.59); #Neutrophils 7.39 10x3/uL (1.40-6.50); %Basophils 0.5 % (0.0-1.0); %Eosinophils 1.3 % (0.0-10.0); %Lymphocytes 17.8 % (21.0-51.0); %Monocytes 3.1 % (0.0-10.0); %Neutrophils 77.2 % (42.0-75.0); Hematocrit 37.3 % (36.0-47.0); Hemoglobin 12.1 g/dL (12.0-16.0); Mean Corpuscular Hemoglobin 25.9 pg (27.0-31.0); Mean Corpuscular Volume 79.9 fL (78.0-98.0); Platelet Count 264 10x3/uL (130-400); Red Blood Cell (RBC) Count 4.67 mill/uL (4.20-5.40); White Blood Cell (WBC) Count 9.58 10x3/uL (4.8-10.8)
[2025-05-26 13:08] LABS: ALT (SGPT) 11 U/L (Less than 34); AST (SGOT) 19 U/L (11-34); Albumin 3.6 g/dL (3.1-4.5); Alkaline Phosphatase 86 U/L (40-110); Anion Gap 14 mmol/L (10-20); BUN (Urea Nitrogen) 9 mg/dL (7.0-18.7); Bilirubin, Total 0.3 mg/dL (0.3-1.2); Calc. Creatinine Clearance 0 mL/min (70-130); Calcium 8.8 mg/dL (7.8-10.44); Carbon Dioxide 24 mmol/L (22-29); Chloride 102 mmol/L (98-107); Globulin 3.9 g/dL (2.4-3.5); Glucose 138 mg/dL (70-105); Lipase 12 U/L (8-78); Potassium 3.8 mmol/L (3.5-5.1); Sodium 136 mmol/L (136-145)
[2025-05-26] MEDS ORDERED: Acetaminophen 500 MG TAB ONE (15:21)
== END 2025-05-26 13:27 | disposition home or self-care (01) ==
LOC: ERS 11:58
DX: O21.0 Mild hyperemesis gravidarum (principal); Z3A.01 Less than 8 weeks gestation of pregnancy
CPT/HCPCS: 80053; 83690; 84702; 85025; 96361; 96374; J2405

== ENCOUNTER 2025-06-07 07:55 | Emergency (ER) | payer OTHER ==
[2025-06-07] MEDS ORDERED: Metoclopramide HCl 10 MG (2 mL) VIAL ONE (08:33)
[2025-06-07] MEDS ORDERED: diphenhydrAMINE 50 MG/ML VIAL ONE (08:33)
[2025-06-07 08:41] LABS: #Basophils 0.05 10x3/uL (0.0-0.2); #Eosinophils 0.26 10x3/uL (0.0-0.7); #Monocytes 0.47 10x3/uL (0.11-0.59); #Neutrophils 7.32 10x3/uL (1.40-6.50); %Basophils 0.5 % (0.0-1.0); %Eosinophils 2.7 % (0.0-10.0); %Lymphocytes 16.1 % (21.0-51.0); %Monocytes 4.9 % (0.0-10.0); %Neutrophils 75.6 % (42.0-75.0); Hematocrit 38.9 % (36.0-47.0); Hemoglobin 12.5 g/dL (12.0-16.0); Mean Corpuscular Hemoglobin 25.4 pg (27.0-31.0); Mean Corpuscular Volume 79.1 fL (78.0-98.0); Platelet Count 249 10x3/uL (130-400); Red Blood Cell (RBC) Count 4.92 mill/uL (4.20-5.40); White Blood Cell (WBC) Count 9.68 10x3/uL (4.8-10.8)
[2025-06-07 09:06] LABS: ALT (SGPT) 7 U/L (Less than 34); AST (SGOT) 16 U/L (11-34); Albumin 3.7 g/dL (3.1-4.5); Alkaline Phosphatase 79 U/L (40-110); Anion Gap 13 mmol/L (10-20); BUN (Urea Nitrogen) 10 mg/dL (7.0-18.7); Bilirubin, Total 0.4 mg/dL (0.3-1.2); Calc. Creatinine Clearance 0 mL/min (70-130); Calcium 9.0 mg/dL (7.8-10.44); Carbon Dioxide 21 mmol/L (22-29); Chloride 106 mmol/L (98-107); Globulin 4.0 g/dL (2.4-3.5); Glucose 123 mg/dL (70-105); Magnesium 2.0 mg/dL (1.6-2.6); Potassium 3.7 mmol/L (3.5-5.1); Sodium 136 mmol/L (136-145)
[2025-06-07 09:11] LABS: Bacteria/HPF None Seen HPF (None Seen); CAUTI Indications for Culture Dysuria,urgency,freq; Glucose, Urine (Dipstick) Normal (Negative); Leukocyte 75 Leu/uL (Negative); Protein, Urine (Dipstick) 30 mg/dL (Neg-Trace); RBC/HPF None Seen HPF (0-3); Specific Gravity, Urine 1.041 (1.002-1.036); WBC/HPF 21-50 HPF (0-3)
[2025-06-07 09:15] LABS: Urine Culture Reflex Yes Yes
[2025-06-07] MEDS ORDERED: Acetaminophen 325 MG TAB ONE (10:59)
== END 2025-06-07 11:39 | disposition home or self-care (01) ==
LOC: ERS 07:55
DX: O21.9 Vomiting of pregnancy, unspecified (principal); O23.41 Unspecified infection of urinary tract in pregnancy, first trimester; N39.0 Urinary tract infection, site not specified; Z3A.08 8 weeks gestation of pregnancy
CPT/HCPCS: 36415; 80053; 81001; 83735; 85025; 87086; 93005; 96374; 96375; J1200; J2765

== ENCOUNTER 2025-06-14 13:20 | Emergency (ER) | payer OTHER ==
[2025-06-14] MEDS ORDERED: Ondansetron PF 4 MG/2 ML Vial ONE (14:14)
[2025-06-14 14:15] LABS: #Basophils 0.04 10x3/uL (0.0-0.2); #Eosinophils 0.23 10x3/uL (0.0-0.7); #Monocytes 0.41 10x3/uL (0.11-0.59); #Neutrophils 8.76 10x3/uL (1.40-6.50); %Basophils 0.3 % (0.0-1.0); %Eosinophils 2.0 % (0.0-10.0); %Lymphocytes 18.1 % (21.0-51.0); %Monocytes 3.5 % (0.0-10.0); %Neutrophils 75.8 % (42.0-75.0); Hematocrit 38.1 % (36.0-47.0); Hemoglobin 12.5 g/dL (12.0-16.0); Mean Corpuscular Hemoglobin 25.7 pg (27.0-31.0); Mean Corpuscular Volume 78.4 fL (78.0-98.0); Platelet Count 279 10x3/uL (130-400); Red Blood Cell (RBC) Count 4.86 mill/uL (4.20-5.40); White Blood Cell (WBC) Count 11.57 10x3/uL (4.8-10.8)
[2025-06-14 14:43] LABS: ALT (SGPT) 11 U/L (Less than 34); AST (SGOT) 25 U/L (11-34); Albumin 3.7 g/dL (3.1-4.5); Alkaline Phosphatase 85 U/L (40-110); Anion Gap 17 mmol/L (10-20); BUN (Urea Nitrogen) 10 mg/dL (7.0-18.7); Bilirubin, Total 0.4 mg/dL (0.3-1.2); Calc. Creatinine Clearance 0 mL/min (70-130); Calcium 9.7 mg/dL (7.8-10.44); Carbon Dioxide 22 mmol/L (22-29); Chloride 103 mmol/L (98-107); Globulin 4.2 g/dL (2.4-3.5); Glucose 90 mg/dL (70-105); Lipase 10 U/L (8-78); Potassium 4.0 mmol/L (3.5-5.1); Sodium 138 mmol/L (136-145)
[2025-06-14 14:51] LABS: Bacteria/HPF 1+ HPF (None Seen); CAUTI Indications for Culture Pelvic or flank pain; Glucose, Urine (Dipstick) Normal (Negative); Leukocyte Negative Leu/uL (Negative); Protein, Urine (Dipstick) 30 mg/dL (Neg-Trace); RBC/HPF 0-3 HPF (0-3); Specific Gravity, Urine 1.038 (1.002-1.036); Urine Culture Reflex No No
[2025-06-14] MEDS ORDERED: Famotidine 20 MG TAB ONE (15:35)
[2025-06-14] MEDS ORDERED: diphenhydrAMINE 50 MG/ML VIAL ONE (17:29)
== END 2025-06-14 21:52 | disposition short-term general hospital (02) ==
LOC: ERS 13:20
DX: O21.9 Vomiting of pregnancy, unspecified (principal); O99.891 Other specified diseases and conditions complicating pregnancy; R82.71 Bacteriuria; Z3A.09 9 weeks gestation of pregnancy
CPT/HCPCS: 36415; 80053; 81001; 83690; 85025; 87428; 96374; 96375; J1200; J2405; J2550; J2919